=== PATIENT | male | born 1960 | race Caucasian/White ===

== ENCOUNTER 2021-01-19 04:37 | Emergency (ER) | payer OTHER ==
[~2021-01-19] VITALS: Ht 175.3 cm; Wt 81.6 kg
--- NOTE | 2021-01-19 04:43 | ED Abdominal Pain ---
General Stated Complaint: ABD PAIN Source of Information: Patient, EMS Exam Limitations: No Limitations (ANGELITA BRANNON MD) History of Present Illness Date Seen by Provider: Jan 19, 2021 Time Seen by Provider: 04:35 Initial Comments Patient is a 60-year-old male who presents to the emergency department today by EMS with a chief complaint of right-sided abdominal pain. Patient was awoken from sleep around 1 AM with the pain. He did not take anything for it. Patient states that laying flat makes his pain worse. He states he was a little bit nauseated but actually the pain is much improved from when it first started. He denies problems with bowel or bladder, no blood in his stools. Last bowel movement was before he went to bed last night. He takes no daily medications, he does not smoke drink or do illicit drugs. No prior abdominal surgeries. He is never had pain quite like this before. All other review of systems reviewed and negative except as stated. Timing/Duration: 1/2 Hour Severity/Quality: Severe Location: RLQ Radiation: No Radiation Activities at Onset: Sleeping Associated Symptoms: Denies Symptoms (ANGELITA BRANNON MD) Allergies and Home Medications Allergies Coded Allergies: No Known Drug Allergies (Unverified , 01/19/21) Patient Home Medication List Home Medication List Reviewed: Yes (MAIKEL SYKES DO) Ketorolac Tromethamine (Ketorolac Tromethamine) 10 Mg Tablet, 10 MG PO Q6H Prescribed by: MAIKEL SYKES on 01/19/21611 Nitrofurantoin Monohyd/M-Cryst (Macrobid 100 mg Capsule) 100 Mg Capsule, 1 TAB PO BID Prescribed by: MAIKEL SYKES on 01/19/21611 Ondansetron (Ondansetron Odt) 4 Mg Tab.rapdis, 4 MG PO Q4H Prescribed by: MAIKEL SYKES on 01/19/21611 Tamsulosin HCl (Flomax) 0.4 Mg Cap, 0.4 MG PO DAILY Prescribed by: MAIKEL SYKES on 01/19/21611 Review of Systems Review of Systems Constitutional: see HPI EENTM: No Symptoms Reported Respiratory: No Symptoms Reported Cardiovascular: No Symptoms Reported Gastrointestinal: Abdominal Pain, Nausea (mild) Genitourinary: No Symptoms Reported Musculoskeletal: no symptoms reported Skin: no symptoms reported (ANGELITA BRANNON MD) All Other Systems Reviewed Negative Unless Noted: Yes (ANGELITA BRANNON MD) Physical Exam Vital Signs Vital Signs - First Documented 01/19/21 04:37 Temp 36.9 Pulse 62 Resp 18 B/P (MAP) 144/86 (105) Pulse Ox 97 O2 Delivery Room Air (MONY,MAIKEL K DO) Vital Signs Capillary Refill : (ANGELITA BRANNON MD) Height/Weight/BMI Height: '" Weight: lbs. oz. kg; BMI Method: General Appearance: WD/WN, no apparent distress HEENT: PERRL/EOMI Neck: normal inspection Respiratory: lungs clear, normal breath sounds, no respiratory distress, no accessory muscle use Cardiovascular: regular rate, rhythm Gastrointestinal: normal bowel sounds, non tender, soft Back: normal inspection, no CVA tenderness Neurologic/Psychiatric: alert, normal mood/affect, oriented x 3 Skin: normal color, warm/dry (ANGELITA BRANNON MD) Progress/Results/Core Measures Results/Orders Lab Results Laboratory Tests Test 01/19/21 04:42 Range/Units White Blood Count 9.9 4.3-11.0 10^3/uL Red Blood Count 4.71 4.30-5.52 10^6/uL Hemoglobin 15.5 13.3-17.7 g/dL Hematocrit 44 40-54 % Mean Corpuscular Volume 94 80-99 fL Mean Corpuscular Hemoglobin 33 25-34 pg Mean Corpuscular Hemoglobin Concent 35 32-36 g/dL Red Cell Distribution Width 12.5 10.0-14.5 % Platelet Count 174 130-400 10^3/uL Mean Platelet Volume 11.2 9.0-12.2 fL Immature Granulocyte % (Auto) 1 % Neutrophils (%) (Auto) 79 H 42-75 % Lymphocytes (%) (Auto) 13 12-44 % Monocytes (%) (Auto) 7 0-12 % Eosinophils (%) (Auto) 1 0-10 % Basophils (%) (Auto) 0 0-10 % Neutrophils # (Auto) 7.8 1.8-7.8 10^3/uL Lymphocytes # (Auto) 1.3 1.0-4.0 10^3/uL Monocytes # (Auto) 0.7 0.0-1.0 10^3/uL Eosinophils # (Auto) 0.1 0.0-0.3 10^3/uL Basophils # (Auto) 0.0 0.0-0.1 10^3/uL Immature Granulocyte # (Auto) 0.1 0.0-0.1 10^3/uL Urine Color YELLOW Urine Clarity CLOUDY Urine pH 6.0 5-9 Urine Specific [place] >=1.030 1.016-1.022 Urine Protein 1+ H NEGATIVE Urine Glucose (UA) NEGATIVE NEGATIVE Urine Ketones NEGATIVE NEGATIVE Urine Nitrite NEGATIVE NEGATIVE Urine Bilirubin NEGATIVE NEGATIVE Urine Urobilinogen 0.2 < = 1.0 MG/DL Urine Leukocyte Esterase NEGATIVE NEGATIVE Urine RBC (Auto) 3+ H NEGATIVE Urine RBC >100 H /HPF Urine WBC 0-2 /HPF Urine Squamous Epithelial Cells 0-2 /HPF Urine Crystals NONE /LPF Urine Bacteria TRACE /HPF Urine Casts NONE /LPF Urine Mucus SMALL H /LPF Urine Culture Indicated NO Sodium Level 140 135-145 MMOL/L Potassium Level 3.9 3.6-5.0 MMOL/L Chloride Level 106 98-107 MMOL/L Carbon Dioxide Level 21 21-32 MMOL/L Anion Gap 13 5-14 MMOL/L Blood Urea Nitrogen 21 H 7-18 MG/DL Creatinine 1.31 H 0.60-1.30 MG/DL Estimat Glomerular Filtration Rate 56 BUN/Creatinine Ratio 16 Glucose Level 155 H 70-105 MG/DL Calcium Level 9.7 8.5-10.1 MG/DL (MONY,MAIKEL K DO) My Orders Orders - MONYMAIKEL K DO Tamsulosin Capsule (Flomax Capsule) (01/19/21 06:15) (MONY,MAIKEL K DO) Medications Given in ED Current Medications Medications Dose Ordered Sig/Alison Route Start Time Stop Time Status Last Admin Dose Admin Ketorolac Tromethamine 15 mg ONCE ONCE IVP 01/19/21 05:45 01/19/21 05:46 DC 01/19/21 05:42 15 MG (MONY,MAIKEL K DO) Vital Signs/I&O 01/19/21 01/19/21 04:37 06:25 Temp 36.9 36.9 Pulse 62 56 Resp 18 16 B/P (MAP) 144/86 (105) 138/77 Pulse Ox 97 98 O2 Delivery Room Air Room Air (MONYALISONA K DO) Progress Progress Note : Time: 05:35 Progress Note re-evaluated patient after labs returned, he has a slight increase in pain rating it at about a "4 or 5". WIll go ahead and give him a liter of fluids and some toradol. I spoke with him about doing a CT abdomen and Pelvis to r/o kidney stone. He is agreeable. Currently not nauseated. (ANGELITA BRANNON MD) Progress Note : Progress Note 0545--ASSUMED CARE OF PT AT SHIFT CHANGE, CT PENDING. PT IS PAIN-FREE/SYMPTOM - FREE AT DISMISSAL PT IS STOCK [employer] FROM [place], DOES NOT HAVE PCP ANYWHERE STATES HE IS DRIVING TO [place] TODAY WILL NOT PRESCRIBE ANY NARCOTICS, HE HAS TO DRIVE (MAIKEL SYKES DO) Diagnostic Imaging Comments KUB--NO ACUTE PROCESS, PENDING RADIOLOGIST REVIEW CT ABDOMEN/PELVIS--OBSTRUCTING 2 MM RIGHT UVJ CALCULUS, MILD FULLNESS OF RIGHT COLLECTING SYSTEM AND TRACE RIGHT PERINEPHRIC STRANDING, PER [facility] VIA FAX AT [phone] Reviewed: Reviewed by Me (MAIKEL SYKES DO) Departure Impression Primary Impression: Hematuria Qualified Codes: R31.9 - Hematuria, unspecified Additional Impression: Right distal ureteral calculus Disposition: HOME, SELF-CARE Condition: Improved Departure-Patient Inst. Decision time for Depature: 06:00 (MAIKEL SYKES DO) Patient Instructions: Kidney Stone, Adult ED, How to Strain Your Urine Add. Discharge Instructions: STRAIN ALL URINE INCREASE YOUR FLUID INTAKE FOLLOW UP WITH UROLOGIST AT HOME--CALL TODAY TO SCHEDULE A FOLLOW UP APPOINTMENT RETURN TO NEAREST ER IF SYMPTOMS RETURN Scripts Ketorolac Tromethamine (Ketorolac Tromethamine) 10 Mg Tablet 10 MG PO Q6H for Pain, #15 TAB Prov: MAIKEL SYKES DO 01/19/21 Nitrofurantoin Monohyd/M-Cryst (Macrobid 100 mg Capsule) 100 Mg Capsule 1 TAB PO BID, #20 CAP Prov: MAIKEL SYKES DO 01/19/21 Ondansetron (Ondansetron Odt) 4 Mg Tab.rapdis 4 MG PO Q4H for Nausea/Vomiting, #10 TAB Prov: MAIKEL SYKES DO 01/19/21 Tamsulosin HCl (Flomax) 0.4 Mg Cap 0.4 MG PO DAILY, #10 CAP Prov: MAIKEL SYKES DO 01/19/21 ANGELITA BRANNON MD Jan 19, 2021 04:43 MAIKEL SYKES DO Jan 19, 2021 06:12
[2021-01-19 04:55] LABS: CLARITY,URINE CLOUDY; COLOR,URINE YELLOW; GLUCOSE, URINE (UA) NEGATIVE (NEGATIVE); KETONES,URINE NEGATIVE (NEGATIVE); LEUKOCYTE ESTERASE ,URINE NEGATIVE (NEGATIVE); NITRITE,URINE NEGATIVE (NEGATIVE); PROTEIN,URINE 1+ (NEGATIVE)
[2021-01-19 04:59] LABS: BASOPHILS % (AUTO) 0 % (0-10); EOSINOPHILS # (AUTO) 0.1 10^3/uL (0.0-0.3); EOSINOPHILS % (AUTO) 1 % (0-10); HEMATOCRIT 44 % (40-54); HEMOGLOBIN 15.5 g/dL (13.3-17.7); LYMPHOCYTES # (AUTO) 1.3 10^3/uL (1.0-4.0); LYMPHOCYTES % (AUTO) 13 % (12-44); MEAN CORPUSCULAR HEMOGLOBIN 33 pg (25-34); MEAN CORPUSCULAR HGB CONC 35 g/dL (32-36); MEAN CORPUSCULAR VOLUME 94 fL (80-99); MEAN PLATELET VOLUME 11.2 fL (9.0-12.2); MONOCYTES # (AUTO) 0.7 10^3/uL (0.0-1.0); MONOCYTES % (AUTO) 7 % (0-12); NEUTROPHILS # (AUTO) 7.8 10^3/uL (1.8-7.8); NEUTROPHILS % (AUTO) 79 % (42-75); PLATELET COUNT 174 10^3/uL (130-400); WHITE BLOOD COUNT 9.9 10^3/uL (4.3-11.0)
[2021-01-19 05:08] LABS: POTASSIUM 3.9 MMOL/L (3.6-5.0)
[2021-01-19 05:09] LABS: CALCIUM 9.7 MG/DL (8.5-10.1)
[2021-01-19 05:14] LABS: CREATININE SERUM 1.31 MG/DL (0.60-1.30)
[2021-01-19 05:16] LABS: BACTERIA,URINE TRACE /HPF; BILIRUBIN,URINE NEGATIVE (NEGATIVE); RBC,URINE >100 /HPF; SQUAMOUS EPITHELIAL CELL,UR 0-2 /HPF; WBC,URINE 0-2 /HPF
[2021-01-19] MEDS ORDERED: KETOROLAC 30 MG/ML VIAL IVP ONE (05:45)
--- NOTE | 2021-01-19 06:07 | Diagnostic Imaging Report ---
INDICATION: Right flank pain. Comparison with CT scan of 01/19/2021. FINDINGS: KUB. There is normal stool and gas pattern. No calculi are seen overlying the kidneys. There are multiple phleboliths in the pelvis which were demonstrated on previous CT scan. No definite ureteral or bladder stones are seen. IMPRESSION: 1. Multiple phleboliths in the pelvis. No definite calculi are seen. Dictated by: Dictated on workstation # [id number]
--- NOTE | 2021-01-19 06:10 | Diagnostic Imaging Report ---
PROCEDURE: CT urinary tract, rule out kidney stone. TECHNIQUE: Multiple contiguous axial images were obtained through the abdomen and pelvis without the use of intravenous contrast. Auto Exposure Controls were utilized during the CT exam to meet ALARA standards for radiation dose reduction. INDICATION: Flank pain. FINDINGS: There are 2 nonobstructing 2 mm calculi within the left renal calyces. Right kidney appears normal. Renal outlines are smooth. There is mild dilatation of the right ureter. There is a 2 mm calculus in the distal right ureter at the trigone of the bladder. The bladder is decompressed. There is fatty change of the liver. Gallbladder and bile ducts are normal. Pancreas and spleen are normal. Adrenal glands are normal. Bowel gas pattern is normal. The appendix is not identified. There is no fluid about the cecum. The sigmoid colon shows no evidence of diverticulitis. There is no free air or free fluid. No blastic or lytic bony changes. IMPRESSION: 1. There is a 2 mm calculus within the distal right ureter. This was called to the Emergency Room physician. Dictated by: Dictated on workstation # [id number]
[2021-01-19] MEDS ORDERED: KETO10TA PO (06:12)
[2021-01-19] MEDS ORDERED: ONDA4TAB11 PO (06:12)
[2021-01-19] MEDS ORDERED: TMSL.4C PO (06:12)
[2021-01-19] MEDS ORDERED: NITR-65 PO (06:12)
[2021-01-19] MEDS ORDERED: TAMSULOSIN 0.4 MG (FLOMAX) CAP PO SCH (06:15)
[2021-01-19 06:25] VITALS: BP 138/77
== END 2021-01-19 06:25 | disposition home or self-care (01) ==
LOC: ER 04:39
DX: R31.9 Hematuria, unspecified (principal); N20.1 Calculus of ureter
CPT/HCPCS: 36415; 74018; 74176; 80048; 81000; 85025